=== PATIENT | female | born 1990 | race Caucasian/White ===

== ENCOUNTER 2017-03-29 08:47 | Outpatient (RCR) | payer OTHER ==
--- NOTE | 2017-04-02 21:00 | Hyperbaric Consultation ---
HYPERBARIC OXYGEN CONSULTATION REASON FOR CONSULTATION: Hyperbaric oxygen. HISTORY OF PRESENT ILLNESS: The patient is a 27-year-old very pleasant female, who underwent breast reduction. The patient is noted to have persistent open wounds and now being evaluated for hyperbaric oxygen. The patient is otherwise stable. No other concern. The patient was referred for failed flap. The patient denies any other significant pulmonary issues and denies any significant head and neck issues. PAST MEDICAL HISTORY: Essentially negative with the exception of mild depression. MEDICATIONS: Reviewed, includes essentially omeprazole and Diflucan. SOCIAL HISTORY: Single. Nonsmoker and nondrinker. REVIEW OF SYSTEMS: Otherwise negative. PHYSICAL EXAMINATION: GENERAL: A well-developed female, comfortable, alert. VITAL SIGNS: Blood pressure 134/92, pulse 77, temperature 98.3, and respiratory rate 18. HEENT: Negative. Tympanic membranes are clear. Oropharynx is clear. NECK: Supple. LUNGS: Clear. CARDIAC: Normal S1 and S2. Regular rate and rhythm. BREASTS: Notable for open wounds. IMPRESSION: Failed flap status post breast reduction. RECOMMENDATIONS: The patient appears to be an appropriate candidate for hyperbaric oxygen, would pursue initial 20 treatments at 90 minutes and 2 atmospheres with ongoing wound care and follow up for resolution and consideration for further treatments post the initial 20. The care was discussed with the patient in detail. Risks and benefits described to be discussed. The patient will return pending her schedule. Miguel Angel Alvarado M.D. DR: REBECA JOB#: [id number] CC: [facility]
== END 2017-04-25 | disposition home or self-care (01) ==
LOC: WCC 08:47
DX: T86.828 Other complications of skin graft (allograft) (autograft) (principal)

== ENCOUNTER 2017-04-26 09:59 | Outpatient (RCR) | payer OTHER | END 2017-05-26 | disposition home or self-care (01) | LOC: WCC 09:59 | DX: T86.828 Other complications of skin graft (allograft) (autograft) (principal); Z91.048 Other nonmedicinal substance allergy status | CPT/HCPCS: G0277 ×15 ==

== ENCOUNTER 2017-05-29 10:15 | Outpatient (RCR) | payer OTHER | END 2017-06-25 | disposition home or self-care (01) | LOC: WCC 10:15 | DX: T86.828 Other complications of skin graft (allograft) (autograft) (principal) ==